=== PATIENT | female | born 1950 | race Caucasian/White ===

== ENCOUNTER → 2017-10-20 | Outpatient (CLI) | payer OTHER | END | disposition home or self-care (01) | DX: Z01.818 Encounter for other preprocedural examination (principal); M16.12 Unilateral primary osteoarthritis, left hip; R26.2 Difficulty in walking, not elsewhere classified; M25.552 Pain in left hip; M25.652 Stiffness of left hip, not elsewhere classified; M62.81 Muscle weakness (generalized); Z74.1 Need for assistance with personal care | CPT/HCPCS: 97161 GP; 97165 GO; 97530 GP; 97535 GO; G8978 GP; G8979 GP; G8980 GP; G8987 GO; G8988 GO; G8989 GO ==

== ENCOUNTER 2017-11-02 21:07 | Inpatient (IN) | payer OTHER ==
[~2017-11-02] VITALS: Ht 167.6 cm; Wt 126.5 kg
[~2017-11-02 21:07] MED LIST: AMARYL2 MG PO; CAPOTEN25 MG PO; CRANBERRY500 M2 PO; CRESTOR10 MG PO; GLUCOPHAGE1000 MG PO; GLUCOPHAGE500 MG PO; HYDROCHLOROTHIA50 MG PO; INDERAL LA80 MG PO; LO-DOSE ASPIRIN81 M1 PO; MEGA BIOTIN10000 MCG PO; NAPROSYN500 MG PO; NEURONTIN400 MG PO; PROBIOTIC1 EAC2 PO; STRESS-C WITH1 EAC1 PO; VICTOZA0.6 MG/0.1 SC
[2017-11-03 07:10] VITALS: BP 150/63
[2017-11-03 12:35] LABS: HEMATOCRIT 31.5 % (36.0-46.0); HEMOGLOBIN 10.3 G/DL (11.9-15.5); MCH 28.1 PG (29.0-34.0); MCHC 32.7 G/DL (30.0-36.0); MCV 86.1 FL (83-99); PLATELET COUNT 103 K/uL (156-360); RBC DIS.WIDTH-CV 14.8 % (11.8-14.6); RED BLOOD COUNT 3.66 M/uL (3.80-5.20); WHITE BLOOD COUNT 4.1 K/uL (4.1-10.2)
[2017-11-03 13:34] VITALS: BP 183/77
[2017-11-03 15:58] VITALS: BP 128/59
[2017-11-03 20:13] VITALS: BP 123/57
[2017-11-03 23:50] VITALS: BP 130/78
[2017-11-04 04:20] VITALS: BP 141/63
[2017-11-04 06:44] LABS: HEMATOCRIT 30.7 % (36.0-46.0); HEMOGLOBIN 10.1 G/DL (11.9-15.5); MCV 85.8 FL (83-99)
[2017-11-04 07:01] LABS: CHLORIDE 101 MEQ/L (99-109); CREATININE 0.5 MG/DL (0.6-1.3); GFR ESTIMATE (CALCULATED) > 59 mL/min/; GLUCOSE 156 mg/dL (70-99); SODIUM 139 MEQ/L (136-147); UREA NITROGEN (BUN) 11 mg/dL (9-23)
[2017-11-04 08:16] VITALS: BP 129/59
[2017-11-04] MEDS ORDERED: OXYCODONE HCL5 MG PO (08:49)
[2017-11-04] MEDS ORDERED: ELIQUIS2.5 MG PO (08:49)
[2017-11-04 11:10] VITALS: BP 115/51
[2017-11-04 15:43] VITALS: BP 120/57
[2017-11-04 20:10] VITALS: BP 151/64
[2017-11-05] VITALS: BP 149/67
[2017-11-05 04:01] VITALS: BP 136/62
[2017-11-05 07:13] VITALS: BP 150/63
[2017-11-05 11:27] VITALS: BP 119/64
[2017-11-05 18:55] VITALS: BP 140/62
[2017-11-05 23:15] VITALS: BP 134/60
[2017-11-06 08:38] VITALS: BP 142/63
== END 2017-11-06 11:13 | DRG 470 ==
LOC: ENRESERV 21:07 → 3WEST 11-03 06:34 → 2SOUTH 11-03 06:34 → 3WEST 11-03 13:25 → ENRESERV 11-05 04:49 → 3WEST 11-05 07:12 → ENRESERVTM 11-05 07:14 → ENRESERV 11-05 07:14 → 3EAST 11-05 14:41
PROVIDERS: Orthopaedic Surgery
PROC: 0SRB0JA Replacement of Left Hip Joint with Synthetic Substitute, Uncemented, Open Approach (ICD-10-PCS; principal; 2017-11-03)
DX: M16.12 Unilateral primary osteoarthritis, left hip (principal); I10 Essential (primary) hypertension; E11.9 Type 2 diabetes mellitus without complications; E78.00 Pure hypercholesterolemia, unspecified; G89.29 Other chronic pain; E66.01 Morbid (severe) obesity due to excess calories; Z68.42 Body mass index [BMI] 45.0-49.9, adult; Z79.82 Long term (current) use of aspirin
CPT/HCPCS: 71045; 73501; 80048; 82948; 85014; 85018; 85027; 97530 GO; 97530 GP; J0690; J1170; J1815; J2250; J2405; J7050; S0020